=== PATIENT | female | born 1985 | race Caucasian/White ===

== ENCOUNTER 2018-08-05 14:37 | Emergency (ER) | payer BC ==
--- NOTE | 2018-08-05 15:40 | EDM.PDOC ---
ED HPI GENERAL MEDICAL PROBLEM - General Chief Complaint: Upper Extremity Injury/Pain Stated Complaint: R HAND INJURY Time Seen by Provider: 08/05/18 14:50 Source of Information: Reports: Patient, RN Notes Reviewed History Limitations: Reports: No Limitations - History of Present Illness INITIAL COMMENTS - FREE TEXT/NARRATIVE: Patient is a 32 year old female who presents to the ED for the evaluation of right hand pain. She states that she had friends over last night and that she had been drinking when she ended up tripping over something on the floor and ended up falling into a metal railing of her staircase with her right hand. She does not exactly remember how she actually fell into her railing however. She states that she woke up this morning and her hand was painful and bruised. She is still able to use the hand and denies any numbness or tingling. She would rate her pain at a 6/10 today. She has not taken any aleve or iced the area. 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 (See Below) Other SWITCHBOARD OPERATOR RECEPTIONIST History: uteral abblation Psychiatric History: Reports: Anxiety, Depression - Infectious Disease History Infectious Disease History: Reports: Herpes Other Infectious Disease History: vaginal Social & Family History - Tobacco Use Smoking Status *Q: Never Smoker - Caffeine Use Caffeine Use: Reports: Coffee, Tea - Recreational Drug Use Recreational Drug Use: No Review of Systems - Review of Systems Review Of Systems: See Below Constitutional: Reports: No Symptoms Eyes: Reports: No Symptoms Ears: Reports: No Symptoms Nose: Reports: No Symptoms Mouth/Throat: Reports: No Symptoms Respiratory: Reports: No Symptoms Cardiovascular: Reports: No Symptoms GI/Abdominal: Reports: No Symptoms Genitourinary: Reports: No Symptoms Musculoskeletal: Reports: Hand Pain (right, palmar aspect, thenar eminence) Skin: Reports: Bruising (diffuse to palmar aspect and into anterior wrist). Denies: Cyanosis, Mottled, Pallor Neurological: Denies: Numbness, Tingling Psychiatric: Reports: No Symptoms ED EXAM, GENERAL - Physical Exam Exam: See Below Free Text/Narrative:: exam limited to right upper extremity Exam Limited By: No Limitations General Appearance: Alert, WD/WN, No Apparent Distress Head: Atraumatic, Normocephalic Neck: Normal Inspection, Supple, Non-Tender, Full Range of Motion Respiratory/Chest: No Respiratory Distress, Lungs Clear, Normal Breath Sounds, No Accessory Muscle Use, Chest Non-Tender Cardiovascular: Normal Peripheral Pulses, Regular Rate, Rhythm, No Murmur Extremities: Normal Inspection, Normal Range of Motion, Non-Tender, No Pedal Edema, Normal Capillary Refill Neurological: Alert, Oriented, Normal Cognition, Normal Gait, No Motor/Sensory Deficits Psychiatric: Normal Affect, Normal Mood Skin Exam: Warm, Dry, Intact, Normal Color, No Rash, Ecchymosis (noted to right hand on palmar aspect, significantly worse over thenar eminence and into anterior wrist.). No: Mottled, Wound/Incision Course - Vital Signs Last Recorded V/S: Last Vital Signs Temp 97.0 F 08/05/18 14:54 Pulse 97 08/05/18 14:54 Resp 18 08/05/18 14:54 BP 102/69 08/05/18 14:54 Pulse Ox 100 08/05/18 14:54 - Orders/Labs/Meds Orders: Active Orders 24 hr Category Date Time Status Hand Comp Min 3V Rt [CR] Stat Exams 08/05/18 15:01 Ordered - Re-Assessments/Exams Free Text/Narrative Re-Assessment/Exam: 08/05/18 15:30 Pt presents to the ED for the evaluation of right hand pain. Her hand x-ray does not demonstrate any obvious fracture, x-ray was reviewed with Dr. Olivo. Will recommend NSAID therapy and ice packs to area for pain relief. It was explained to her that if she has any tenderness in anatomical snuffbox develop, that she be re-evaluated with another x-ray to her right hand. Departure - Departure Time of Disposition: 15:38 Disposition: Home, Self-Care 01 Condition: Fair Clinical Impression: Contusion of right hand Qualifiers: Encounter type: initial encounter Qualified Code(s): S60.221A - Contusion of right hand, initial encounter - Discharge Information *PRESCRIPTION DRUG MONITORING PROGRAM REVIEWED*: No *COPY OF PRESCRIPTION DRUG MONITORING REPORT IN PATIENT NELIA: No Instructions: Hand Contusion, [id number] Referrals: PCP,None [Primary Care Provider] - Forms: ED Department Discharge Additional Instructions: You have been evaluated in the ED for your right hand/wrist pain Your x-ray demonstrated no acute fracture of your right hand. Please use ice as tolerated to the affected area. You may take tylenol 500 mg or ibuprofen 600mg q6 hrs for pain relief. Please do so until you have a tolerable level of pain with activity. Do not exceed 4000mg tylenol in one day. Do not exceed 3200mg ibuprofen in one day. You may take 2 tabs Aleve twice daily as needed if you should desire to use aleve. Please return to ED if your symptoms should change or worsen. - My Orders Last 24 Hours: My Active Orders 08/05/18 15:01 Hand Comp Min 3V Rt [CR] Stat - Assessment/Plan Last 24 Hours: My Active Orders 08/05/18 15:01 Hand Comp Min 3V Rt [CR] Stat
--- NOTE | 2018-08-05 16:18 | CR ---
Right hand: Four views of the right hand were obtained. Comparison: No prior right hand exam. Joint spaces are preserved. No fracture, dislocation or other bony abnormality is seen. Impression: 1. No abnormality is identified on right hand exam. Diagnostic code #1
== END 2018-08-05 16:00 | disposition home or self-care (01) ==
LOC: JD.ED 14:37
DX: S60.221A Contusion of right hand, initial encounter (principal); F41.9 Anxiety disorder, unspecified; F32.9 Major depressive disorder, single episode, unspecified; Z79.899 Other long term (current) drug therapy; W18.09XA Striking against other object with subsequent fall, initial encounter
CPT/HCPCS: 73130-26-RT; 73130-RT; 99282; 99283

== ENCOUNTER 2025-06-19 19:36 | Emergency (ER) | payer BC, MEDICAID ==
[2025-06-19 20:12] LABS: BASOPHILS ABSOLUTE AUTO 0.0 K/mm3 (0.0-0.2); BASOPHILS PERCENT AUTO 0.4 % (0.0-1.0); EOSINOPHILS ABSOLUTE AUTO 0.1 K/mm3 (0.0-0.4); EOSINOPHILS PERCENT AUTO 1.1 % (0.0-6.0); IMMATURE GRAN ABSOLUTE AUTO 0.01 K/mm3 (0.00-0.05); IMMATURE GRAN PERCENT AUTO 0.2 % (0.0-0.4); LYMPHOCYTES ABSOLUTE AUTO 2.3 K/mm3 (1.0-4.8); LYMPHOCYTES PERCENT AUTO 42.2 % (24.0-44.0); MEAN PLATELET VOLUME 10.9 fl (9.4-12.3); MONOCYTES ABSOLUTE AUTO 0.4 K/mm3 (0.0-0.8); MONOCYTES PERCENT AUTO 6.9 % (0.0-8.0); NEUTROPHILS ABSOLUTE AUTO 2.7 K/mm3 (1.8-7.7); NEUTROPHILS PERCENT AUTO 49.2 % (41.0-71.0); NRBC ABSOLUTE 0.00 (0.00-0.02); NRBC PERCENT 0.0 % (0.0-0.2); PLATELET COUNT,PLT 186 K/mm3 (150-400); RED BLOOD CELL COUNT 4.48 M/mm3 (4.10-5.30); WHITE BLOOD CELL COUNT,WBC 5.48 K/mm3 (3.9-11.3)
[2025-06-19 20:28] LABS: INR 1.06
[2025-06-19 20:31] LABS: A/G RATIO 1.4 (1-2); ALANINE AMINOTRANSFERASE,ALT 23.0 U/L (14-59); ASPARTATE AMNIOTRANSFERASE,AST 19.0 U/L (15-37); BILIRUBIN TOTAL 0.3 mg/dL (0.2-1.0); BLOOD UREA NITROGEN,BUN 5.0 mg/dL (7-18); CARBON DIOXIDE,CO2 31.0 mEq/L (21-32); CHLORIDE,CL 112.0 mEq/L (98-107); CREATINE KINASE,CK 154.0 U/L (26-192); CREATININE 0.8 mg/dL (0.55-1.02); EST CRCL DRUG DOSING (CG) 83.27 mL/min; ESTIMATED GFR 95.0 mL/min (>60); ETHANOL BLOOD MEDICAL 0.28 gm% (0.00); GLUCOSE RANDOM 91.0 mg/dL (70-99); POTASSIUM,K 3.9 mEq/L (3.5-5.1); PROTEIN TOTAL,TP 7.1 g/dl (6.4-8.2); SODIUM,NA 150.0 mEq/L (136-145)
[2025-06-19 20:45] LABS: BUPRENORPHINE SCREEN,URINE NEGATIVE (CUTOFF=10); METHADONE SCREEN, URINE NEGATIVE (CUTOFF=200); METHAMPHETAMINES SCREEN, URINE NEGATIVE (CUTOFF=500); OXYCODONE SCREEN,URINE NEGATIVE (CUT0FF=100); THC SCREEN,URINE 20 NG/ML NEGATIVE (CUTOFF=50)
[2025-06-19 21:44] LABS: AMPHETAMINES SCREEN, URINE NEGATIVE (CUTOFF=500)
== END 2025-06-20 00:08 | disposition home or self-care (01) ==
LOC: JD.ED 19:36
DX: T43.211A Poisoning by selective serotonin and norepinephrine reuptake inhibitors, accidental (unintentional), initial encounter (principal); F43.9 Reaction to severe stress, unspecified; F10.10 Alcohol abuse, uncomplicated; R45.87 Impulsiveness; Z79.899 Other long term (current) drug therapy; Y90.0 Blood alcohol level of less than 20 mg/100 ml
CPT/HCPCS: 36415; 80053; 80143; 80179; 80306; 80307; 82550; 83690; 83735; 84703; 85025; 85610; 99283; 99284